=== PATIENT | female | born 1975 | race Caucasian/White ===

== ENCOUNTER 2016-05-06 08:37 | Outpatient (CLI) | payer OTHER ==
[2016-05-06 09:06] LABS: BASOPHILS % 0.2 (0.0-1.5); EOSINOPHILS % 1.1 % (0.0-6.8); LYMPHOCYTES # 1.2 # k/uL (0.6-4.0); MEAN CORPUSCULAR HEMOGLOBIN 32.7 pg (28.0-34.0); MONOCYTES # 0.3 # k/uL (0.0-0.9); MONOCYTES % 7.4 % (0.0-11.0); NEUTROPHILS # 2.3 # k/uL (1.4-7.7)
[2016-05-06 09:20] LABS: eGFR (African) > 60; eGFR (Non-African) > 60
== END 2016-05-06 08:40 ==
LOC: LAB 08:37
PROVIDERS: ATTEND Nurse Practitioner Psychiatric/Mental Health
DX: Z51.81 Encounter for therapeutic drug level monitoring (principal); Z79.899 Other long term (current) drug therapy
CPT/HCPCS: 36415; 80053; 80061; 80164; 85025

== ENCOUNTER 2016-05-27 08:36 | Outpatient (CLI) | payer OTHER | END 2016-05-27 08:37 | LOC: LAB 08:36 | PROVIDERS: ATTEND Nurse Practitioner Psychiatric/Mental Health | DX: Z51.81 Encounter for therapeutic drug level monitoring (principal); Z79.899 Other long term (current) drug therapy | CPT/HCPCS: 36415; 82608; 82746; 84443 ==

== ENCOUNTER 2016-06-24 08:43 | Outpatient (CLI) | payer OTHER | END 2016-06-24 08:44 | LOC: LAB 08:43 | PROVIDERS: ATTEND Nurse Practitioner Psychiatric/Mental Health | DX: Z51.81 Encounter for therapeutic drug level monitoring (principal); Z79.899 Other long term (current) drug therapy | CPT/HCPCS: 36415; 80171; 82306 ==

== ENCOUNTER 2016-08-12 15:14 | Outpatient (CLI) | payer OTHER | END 2016-08-12 15:15 | LOC: POD 15:14 | PROVIDERS: ATTEND Podiatrist | DX: B35.1 Tinea unguium (principal); M79.674 Pain in right toe(s); M79.675 Pain in left toe(s) | CPT/HCPCS: 11721; G0463 ==

== ENCOUNTER 2016-10-28 09:27 | Outpatient (CLI) | payer OTHER ==
[2016-10-28 10:34] LABS: eGFR (African) > 60; eGFR (Non-African) > 60
== END 2016-10-28 09:30 ==
LOC: LAB 09:27
PROVIDERS: ATTEND Nurse Practitioner Psychiatric/Mental Health
DX: Z51.81 Encounter for therapeutic drug level monitoring (principal)
CPT/HCPCS: 36415; 80053

== ENCOUNTER 2016-11-15 15:07 | Outpatient (CLI) | payer OTHER | END 2016-11-15 15:10 | LOC: POD 15:07 | PROVIDERS: ATTEND Podiatrist | DX: B35.1 Tinea unguium (principal); M79.674 Pain in right toe(s); M79.675 Pain in left toe(s) | CPT/HCPCS: 11721; G0463 ==

== ENCOUNTER 2016-12-23 08:33 | Outpatient (CLI) | payer OTHER ==
[2016-12-23 08:50] LABS: BASOPHILS % 0.8 (0.0-1.5); EOSINOPHILS % 2.1 % (0.0-6.8); MEAN CORPUSCULAR HEMOGLOBIN 33.2 pg (28.0-34.0); MEAN CORPUSCULAR VOLUME 99.4 fl (80.0-100.0); MONOCYTES % 6.1 % (0.0-11.0); NEUTROPHILS # 2.8 # k/uL (1.4-7.7)
[2016-12-23 20:21] LABS: LAMOTRIGINE LEVEL 6.6 ug/mL (3.0-15.0); VALPROIC ACID LEVEL 87.5 ug/mL (50.0-100.0)
== END 2016-12-23 08:34 ==
LOC: LAB 08:33
PROVIDERS: ATTEND Nurse Practitioner Psychiatric/Mental Health
DX: Z79.899 Other long term (current) drug therapy (principal)
CPT/HCPCS: 36415; 80164; 80171; 85025

== ENCOUNTER 2017-01-31 13:24 | Outpatient (CLI) | payer OTHER | END 2017-01-31 13:26 | LOC: POD 13:24 | PROVIDERS: ATTEND Podiatrist | DX: B35.1 Tinea unguium (principal); M79.674 Pain in right toe(s); M79.675 Pain in left toe(s) | CPT/HCPCS: 11721; G0463 ==

== ENCOUNTER 2017-02-14 07:59 | Outpatient (CLI) | payer OTHER ==
[2017-02-14 08:17] LABS: BASOPHILS % 0.5 (0.0-1.5); EOSINOPHILS % 1.8 % (0.0-6.8); MEAN CORPUSCULAR HEMOGLOBIN 32.8 pg (28.0-34.0); MEAN CORPUSCULAR VOLUME 99.7 fl (80.0-100.0); MONOCYTES % 5.6 % (0.0-11.0); NEUTROPHILS # 2.4 # k/uL (1.4-7.7)
[2017-02-14 08:42] LABS: eGFR (African) > 60; eGFR (Non-African) > 60
[2017-02-14 17:51] LABS: LAMOTRIGINE LEVEL 7.3 ug/mL (3.0-15.0); VALPROIC ACID LEVEL 73.9 ug/mL (50.0-100.0)
== END 2017-02-14 08:00 ==
LOC: LAB 07:59
PROVIDERS: ATTEND Specialist
DX: Z79.899 Other long term (current) drug therapy (principal); Q03.9 Congenital hydrocephalus, unspecified
CPT/HCPCS: 36415; 80053; 80164; 80171; 85025

== ENCOUNTER 2017-04-28 13:01 | Outpatient (CLI) | payer OTHER | END 2017-04-28 13:02 | LOC: POD 13:01 | PROVIDERS: ATTEND Podiatrist | DX: M79.674 Pain in right toe(s) (principal); M79.675 Pain in left toe(s) | CPT/HCPCS: 11721; G0463 ==

== ENCOUNTER 2017-07-28 12:57 | Outpatient (CLI) | payer OTHER | END 2017-07-28 13:00 | LOC: POD 12:57 | PROVIDERS: ATTEND Podiatrist | DX: B35.1 Tinea unguium (principal); M79.674 Pain in right toe(s); M79.675 Pain in left toe(s) | CPT/HCPCS: 11721; G0463 ==

== ENCOUNTER 2017-08-01 09:12 | Outpatient (CLI) | payer OTHER ==
[2017-08-01 10:08] LABS: BASOPHILS % 0.2 (0.0-1.5); EOSINOPHILS % 1.3 % (0.0-6.8); MEAN CORPUSCULAR HEMOGLOBIN 32.8 pg (28.0-34.0); MEAN CORPUSCULAR VOLUME 102.1 fl (80.0-100.0); NEUTROPHILS # 2.3 # k/uL (1.4-7.7)
[2017-08-01 10:18] LABS: eGFR (African) > 60; eGFR (Non-African) > 60
== END 2017-08-01 09:13 ==
LOC: LAB 09:12
PROVIDERS: ATTEND Psychiatry & Neurology Psychiatry
DX: Z79.899 Other long term (current) drug therapy (principal)
CPT/HCPCS: 36415; 80053; 80061; 80164; 82306; 85025

== ENCOUNTER 2017-10-27 09:49 | Outpatient (CLI) | payer OTHER | END 2017-10-27 09:54 | LOC: LAB 09:49 | PROVIDERS: ATTEND Specialist | DX: G40.89 Other seizures (principal) | CPT/HCPCS: 36415; 80164 ==

== ENCOUNTER 2017-10-31 13:39 | Outpatient (CLI) | payer OTHER | END 2017-10-31 13:45 | LOC: POD 13:39 | PROVIDERS: ATTEND Podiatrist | DX: B35.1 Tinea unguium (principal); M79.674 Pain in right toe(s); M79.675 Pain in left toe(s) | CPT/HCPCS: 11721; G0463 ==

== ENCOUNTER 2017-11-24 09:46 | Outpatient (CLI) | payer OTHER | END 2017-11-24 09:47 | LOC: LAB 09:46 | PROVIDERS: ATTEND Nurse Practitioner Family | DX: Z51.81 Encounter for therapeutic drug level monitoring (principal); Z79.899 Other long term (current) drug therapy | CPT/HCPCS: 36415; 80164 ==

== ENCOUNTER 2018-01-30 08:31 | Outpatient (CLI) | payer OTHER ==
[2018-01-30 11:24] LABS: MEAN CORPUSCULAR HEMOGLOBIN 32.6 pg (28.0-34.0); eGFR (Non-African) > 60
[2018-01-30 11:25] LABS: BASOPHILS % 0.3 (0.0-1.5); NEUTROPHILS # 2.3 # k/uL (1.4-7.7)
== END 2018-01-30 08:33 ==
LOC: LAB 08:31
PROVIDERS: ATTEND Psychiatry & Neurology Psychiatry
DX: Z51.81 Encounter for therapeutic drug level monitoring (principal); Z79.899 Other long term (current) drug therapy
CPT/HCPCS: 36415; 80053; 80164; 85025

== ENCOUNTER 2019-03-01 09:49 | Outpatient (CLI) | payer OTHER ==
--- NOTE | 2019-03-01 16:42 | Diagnostic Imaging Report ---
PATIENT MR#: [id number] PATIENT PATIENT NAME: JASMIN UNDERWOOD DATE OF : 1975 REFERRING PHYSICIAN: Brigitte Mosley EXAM DATE: 03/01/2019 ACCESSION NUMBER: [id number] EXAM DESCRIPTION: US TRANSVAGINAL PELVIS CLINICAL HISTORY: ABNORMAL PELVIC EXAM, JAIL USE OF HIGH RISK MEDICATION (TAMOXIFEN) TECHNIQUE: Transvaginal ultrasound of the pelvis was performed. ULTRASOUND PELVIS: Uterus: 8.5 x 4.8 x 6.8 cm. Normal without masses. 9 mm septated Nabothian cyst within the cervix. Endometrial stripe: 5 mm thickness. Right ovary: Not visualized via the transvaginal approach. Left ovary: 5.0 x 2.9 x 2.9 cm. Normal ovarian vascular flow. Complex cyst measuring 2.2 cm. Pelvic fluid: Physiologic. IMPRESSION: 1. 2.2 cm left ovarian cyst. Recommend follow-up ultrasound in 6-8 weeks to confirm resolution. 2. Nonvisualization of the right ovary which may be due to bowel gas or high positioning. 3. Small amount of simple free pelvic fluid, which may be physiologic. Read by: Dr. Nitin Miranda Transcribed by: Nitin Miranda Transcribed Date: 03/01/2019 4:41:15 PM Electronically signed by: Dr. Nitin Miranda Date signed: 03/01/2019 4:41:53 PM
== END 2019-03-01 09:59 ==
LOC: RAD 09:49
PROVIDERS: ATTEND Nurse Practitioner Family
DX: Z01.411 Encounter for gynecological examination (general) (routine) with abnormal findings (principal); Z51.81 Encounter for therapeutic drug level monitoring; Z79.899 Other long term (current) drug therapy
CPT/HCPCS: 76830